=== PATIENT | female | born 1965 | race Caucasian/White ===

== ENCOUNTER 2018-05-14 19:30 | Emergency (ER) | payer BC ==
[~2018-05-14] VITALS: Ht 167.6 cm; Wt 84.4 kg
[~2018-05-14 19:30] MED LIST: NITR-58 PO
[2018-05-14 19:40] VITALS: Ht 167.6 cm; Wt 84.4 kg
--- NOTE | 2018-05-14 22:10 | ERD ---
ER Documentation Chief Complaint Chief Complaint redness & pain over R cheek today; denies injury HPI This is a 52-year-old female who presents here in the emergency department with complaints of right ear pain that started 3 days ago. Also stated that she has tenderness to her right ear. Denies foreign body sensation to her right ear. Denies headache, head injury, dizziness, loss of consciousness, ear trauma, neck pain, neck stiffness, difficulty fungal difficult breathing lying flat, shoulder pain, chest pain, back pain, abdominal pain, nausea, vomiting, constipation, diarrhea, urinary symptoms, loss of bowel bladder control, trauma, injury, falls, recent travel, recent long travel, recent exposure to any illness, recent antibiotic use in the last 3 months, fever, chills, seizures. No past medical history. No surgeries. Does not take any prescription medication at home. ROS All systems reviewed and are negative except as per history of present illness. Medications Home Meds Active Scripts Ibuprofen* (Motrin*) 800 Mg Tab, 800 MG PO Q6H PRN for PAIN AND OR ELEVATED TEMP, #20 TAB Prov:YIFANGALENAR F 05/14/18 Amoxicillin/Potassium Clav (Amox-Clav 500-125 mg Tablet) 500-125 mg Tab, 1 TAB PO BID for 7 Days, TAB Prov:PASILABAN,GALENAR F 05/14/18 Ciprofloxacin Hcl/Dexameth (Ciprodex Otic Suspension) 7.5 Ml Drops.susp, 4 DROP RIGHT EAR BID for 7 Days, EA Prov:PASILABAN,KLAR F 05/14/18 Nitrofurantoin Monohyd Macrocr* (Macrobid*) 100 Mg Capsr, 100 MG PO BID for 5 Days, CAP Prov:HENRY BIRD NP 07/27/15 Allergies Allergies: Coded Allergies: No Known Drug Allergy (Verified Allergy, Unknown, 02/23/14) Uncoded Allergies: HAIR DYE (Allergy, Intermediate, hives, 12/01/12) PMhx/Soc History of Surgery: Yes (david flores 2011) Anesthesia Reaction: No Hx Neurological Disorder: No Hx Respiratory Disorders: No Hx Cardiac Disorders: Yes (htn) Hx Psychiatric Problems: No Hx Miscellaneous Medical Probl: No Hx Alcohol Use: No Hx Substance Use: No Hx Tobacco Use: No Physical Exam Vitals Physical Exam Const: No acute distress Head: Atraumatic Eyes: Normal Conjunctiva ENT: Normal External Ears, Nose and Mouth. Left ear: No external ear canal erythema. TMs not erythematous. No bleeding. No discharge with no mastoid tenderness. Right ear: External canal has erythema. External ear has tenderness to palpation. TMs are erythematous. No bleeding. No discharge. No mastoid tenderness. Nose: Midline. There is no frontomaxillary sinus tenderness palpation. Throat: Uvula is midline and expiratory tonsils are +1 bilaterally with mild redness but no exudates. Tolerating secretions. Patent airway. Speaks full and clear sentences. Neck: Full range of motion. No meningismus. No nuchal rigidity. No signs of meningeal irritation. Resp: Clear to auscultation bilaterally Cardio: Regular rate and rhythm, no murmurs Abd: Soft, non tender, non distended. Normal bowel sounds Skin: No petechiae or rashes Back: No midline or flank tenderness Ext: No cyanosis, or edema Neur: Awake and alert. No neurological deficit.. Psych: Normal Mood and Affect Results 24 hrs Current Medications Medications Dose Sig/[place] Start Time Status Last (Trade) Ordered Route PRN Stop Time Admin Dose Reason Admin 1 tab ONCE ONCE 05/14/18 DC 05/14/18 Acetaminophen PO 22:30 22:17 / 05/14/18 22:30 Hydrocodone Bitart ([place] (5/325)) Procedures/MDM Diagnostic tests: Clinical exam. Treatment: [place] p.o. Re-evaluation: Denies pain. No neurological deficits. Differential diagnosis I have low suspicion for mastoiditis, sepsis, peritonsillar abscess, meningitis, retained foreign body to the right ear, deep space infection. Final diagnosis: Otitis externa. Otitis media. Prescription: Ofloxacin otic drops. Augmentin. Motrin. Follow-up with PCP in the next 24-48 hours. PCP to refer patient to ENT in the next 3-4 days. Come back here in the emergency department for any new symptoms or any worsening symptoms. All questions and concerns were answered. Patient and family members verbalized understanding and agreed with plan of care. Hemodynamically stable on discharge. Departure Diagnosis: Primary Impression: Otitis externa Additional Impression: Otitis media Condition: Stable Additional Instructions: Follow-up with PCP in the next 24-48 hours. PCP to refer patient to ENT in the next 3-4 days. Come back here in the emergency department for any new symptoms or any worsening symptoms. TERRI SAHA May 14, 2018 22:10
[2018-05-14] MEDS ORDERED: CIPR7.5D RIGHT EAR (22:11)
[2018-05-14] MEDS ORDERED: IBUP800T48 PO (22:12)
[2018-05-14] MEDS ORDERED: AMOX1TAB9 PO (22:12)
[2018-05-14 22:28] VITALS: BP 147/95; PULSE 86; RESP 17
[2018-05-14] MEDS ORDERED: HYDROCODONE/APAP (5/325) TAB PO ONE (22:30)
== END 2018-05-14 22:24 | disposition home or self-care (01) ==
LOC: FTE 19:30
DX: H60.91 Unspecified otitis externa, right ear (principal); I10 Essential (primary) hypertension; H66.91 Otitis media, unspecified, right ear
CPT/HCPCS: Z7502; Z7610; 99283